=== PATIENT | female | born 1975 ===

== ENCOUNTER 2016-08-11 12:44 | Emergency (ER) | payer OTHER ==
[2016-08-11 12:44] VITALS: BMI 27.8
[2016-08-11 12:52] VITALS: RESP 18; TEMP 98.7; O2SAT 98
[2016-08-11] MEDS ORDERED: Sodium Chloride 0.9% 1,000 ML IV STA (13:03)
[2016-08-11 13:31] LABS: BASO % 0.9 % (0.0-2.0); EOS # 0.3 K/uL (0.0-0.7); EOS % 6.6 % (0.0-4.0); LYMPH # 1.9 K/uL (1.0-4.3); LYMPH % 38.3 % (20.0-40.0); MEAN CELL VOLUME 74.9 fl (81.0-99.0); MEAN CORPUSCULAR HEMOGLOBIN 24.1 pg (27.0-31.0); MEAN CORPUSCULAR HGB CONC 32.2 g/dL (33.0-37.0); MEAN PLATELET VOLUME 7.7 fl (7.2-11.7); MONO # 0.4 K/uL (0.0-0.8); MONO % 7.2 % (0.0-10.0); NEUT # 2.4 K/uL (1.8-7.0); NRBC % 0.1 % (0.0-0.0); RED CELL DISTRIBUTION WIDTH 18.7 % (11.5-14.5); WHITE BLOOD COUNT 5.1 K/uL (4.8-10.8)
[2016-08-11 13:38] LABS: BLOOD UREA NITROGEN 9 mg/dl (7-17); CALCIUM 9.1 mg/dL (8.4-10.2); CARBON DIOXIDE 26 mmol/L (22-30); CHLORIDE 102 mmol/L (98-107); GFR AFRICAN-AMERICAN > 60; GLUCOSE,RANDOM 104 mg/dL (65-105); SODIUM 139 mmol/l (132-148)
--- NOTE | 2016-08-11 14:37 | ED PDOC ---
HPI: Headache Time Seen by Provider: 08/11/16 13:02 Chief Complaint (Nursing): Headache Chief Complaint (Provider): headache, dizziness History Per: Patient History/Exam Limitations: no limitations Onset/Duration Of Symptoms: Days Current Symptoms Are (Timing): Still Present Preceeding Symptoms: None Associated Symptoms: denies: Photophobia, Blurred Vision, Nausea, Vomiting Additional Complaint(s): 40yo female c/o headache, dizziness and palpitations for last 3-4 days. Denies fever, neck pain, syncope or SOB. Past Medical History Reviewed: Historical Data, Nursing Documentation, Vital Signs Vital Signs: Last Vital Signs Temp 98.7 F 08/11/16 12:48 Pulse 83 08/11/16 12:48 Resp 18 08/11/16 12:48 BP 148/83 08/11/16 12:48 Pulse Ox 98 08/11/16 12:48 - Medical History PMH: Hypothyroidism Denies: Chronic Kidney Disease - Surgical History Surgical History: No Surg Hx - Family History Family History: States: Unknown Family Hx - Living Arrangements Living Arrangements: With Family - Social History Current smoker - smoking cessation education provided: No - Home Medications Home Medications: Ambulatory Orders Medication Instructions Recorded Folic Acid [Folic Acid] 1 tab PO DAILY 08/24/14 Multivitamin [Dulce-Plus G] 1 tab PO BID 08/24/14 [id number] Ethyl Esters [OMEGA 3] 1 cap PO DAILY 08/24/14 Ferrous Sulfate 325 mg PO TID #90 tab 12/04/14 Levothyroxine [Synthroid] 75 mcg PO DAILY 12/08/15 Docusate [Colace] 100 mg PO BID #0 cap 12/09/15 Naproxen [Naprosyn] 500 mg PO Q12H #20 tab 08/11/16 - Allergies Allergies/Adverse Reactions: Allergies Allergy/AdvReac Type Severity Reaction Status Date / Time No Known Allergies Allergy Verified 08/24/14 11:32 Review of Systems ROS Statement: Except As Marked, All Systems Reviewed And Found Negative Constitutional: Negative for: Fever, Chills Cardiovascular: Positive for: Light Headedness Respiratory: Negative for: Cough, Shortness of Breath Gastrointestinal: Negative for: Nausea, Vomiting Genitourinary Female: Negative for: Dysuria, Frequency Musculoskeletal: Negative for: Neck Pain, Shoulder Pain Skin: Negative for: Rash, Lesions Neurological: Positive for: Headache, Dizziness. Negative for: Weakness, Numbness Physical Exam - Reviewed Nursing Documentation Reviewed: Yes Vital Signs Reviewed: Yes - Physical Exam Appears: Positive for: Well, Non-toxic, No Acute Distress Head Exam: Positive for: ATRAUMATIC, NORMAL INSPECTION, NORMOCEPHALIC Skin: Positive for: Normal Color, Warm, DRY Eye Exam: Positive for: EOMI, Normal appearance, PERRL ENT: Positive for: Normal ENT Inspection Neck: Positive for: Normal, Painless ROM Cardiovascular/Chest: Positive for: Regular Rate, Rhythm Respiratory: Positive for: CNT, Normal Breath Sounds Gastrointestinal/Abdominal: Positive for: Normal Exam, Bowel Sounds, Soft. Negative for: Tenderness, Guarding Back: Positive for: Normal Inspection Extremity: Positive for: Normal ROM DTR - Ankle (R): 2+ DTR - Ankle (L): 2+ Neurologic/Psych: Positive for: Alert, Oriented, Cerebellar Tests (intact grossly). Negative for: Motor/Sensory Deficits - Laboratory Results Result Diagrams: 08/11/16 13:22 08/11/16 13:22 - ECG ECG: Positive for: Interpreted By Me ECG Rhythm: Positive for: Normal QRS, Sinus Rhythm, Nonspecific Changes Rate: 74 O2 Sat by Pulse Oximetry: 98 Pulse Ox Interpretation: Normal Medical Decision Making Medical Decision Making: workup initiated for headache, dizziness w mild elevation of BP. CT brain, labs and EKG ordered. IVF, toradol and reglan ordered for symptoms. HEART score 1 Bloodwork reviewed, mild hypokalemia, K+ replaced orally. Pending troponin and CT brain, endorsed Dr Ramirez 3pm Disposition - Clinical Impression Clinical Impression: Headache, Hypokalemia - Patient ED Disposition Is Patient to be Admitted: Transfer of Care Counseled Patient/Family Regarding: Studies Performed - Disposition Disposition: Transfer of Care Disposition Time: 14:50 Condition: FAIR Prescriptions: Naproxen [Naprosyn] 500 mg PO Q12H #20 tab Instructions: General Headache (ED) Patient Signed Over To: Rodrick Ramirez
[2016-08-11 14:43] VITALS: PULSE 74
[2016-08-11] MEDS ORDERED: Potassium Chloride 20 mEq ER Tab PO STA (14:43)
--- NOTE | 2016-08-11 16:50 | CT ---
PROCEDURE: CT HEAD WITHOUT CONTRAST. HISTORY: headache COMPARISON: None available. TECHNIQUE: Axial computed tomography images were obtained through the head/brain without intravenous contrast. Radiation dose: Total exam DLP = 1137.38 mGy-cm. This CT exam was performed using one or more of the following dose reduction techniques: Automated exposure control, adjustment of the mA and/or kV according to patient size, and/or use of iterative reconstruction technique. FINDINGS: HEMORRHAGE: No acute parenchymal, subarachnoid or extra-axial hemorrhage. BRAIN: No mass effect or edema. No atrophy or chronic microvascular ischemic changes. VENTRICLES: Unremarkable. No hydrocephalus. CALVARIUM: Unremarkable. PARANASAL SINUSES: Unremarkable as visualized. No significant inflammatory changes. MASTOID AIR CELLS: Unremarkable as visualized. No inflammatory changes. OTHER FINDINGS: None. IMPRESSION: No acute intracranial hemorrhage.
--- NOTE | 2016-08-11 16:52 | ED PDOC ---
- Laboratory Results Result Diagrams: 08/11/16 13:22 08/11/16 13:22 - ECG O2 Sat by Pulse Oximetry: 98 Disposition - Clinical Impression Clinical Impression: Headache, Hypokalemia - POA Present On Arrival: None - Disposition Disposition: Routine/Home Disposition Time: 16:51 Condition: FAIR Prescriptions: Naproxen [Naprosyn] 500 mg PO Q12H #20 tab Instructions: General Headache (ED)
[2016-08-11 17:05] VITALS: BP 145/90
--- NOTE | 2016-08-11 19:20 | CARD ---
APPROVED REPORT EKG Measurement Heart [id number] <Conclusion> Normal sinus rhythm T wave abnormality, consider artifacts prolonged QT interval Abnormal ECG
== END 2016-08-11 17:02 | disposition home or self-care (01) ==
LOC: H.ER 12:44
DX: R51 Headache (principal); E87.6 Hypokalemia; E03.9 Hypothyroidism, unspecified; I10 Essential (primary) hypertension